=== PATIENT | male | born 1970 | race Caucasian/White ===

== ENCOUNTER → 2017-03-30 | Outpatient (REF) ==
[~2017-03-30] MED LIST: ACET500C PO; FELDENE PO; LYRI150C PO; OXYC10TA12 PO; ROSU10TA PO; VIT D 2000 PO; VITA500C PO; VITAMIN B COMPLE1 PO
--- NOTE | 2017-03-30 10:58 | REP ---
Clinical: Pain and disability. Technique: AP, lateral, coned-down views of the lumbosacral spine. Findings: Moderate to advanced multilevel degenerative changes include osteophyte formation, endplate sclerosis and disc space narrowing as well as suspected sacralization of the L5 vertebral body versus significant degenerative changes including obliteration of the joint space and associated facet arthropathy. Alignment is maintained. There is no evidence for acute fracture / compression injury or subluxation. Impression: Moderate to advanced multilevel degenerative changes primarily involving the L5-S1 level where sacralization of L5 is suspected. Normal alignment without evidence for fracture / compression injury or subluxation. Signed by Denver Hopkins MD 03/30/2017 10:49 A
--- NOTE | 2017-03-30 11:03 | REP ---
Clinical: Pain and disability. Technique: AP, lateral, bilateral oblique and sunrise views of the right knee. Findings: Early advanced tricompartmental osteoarthritic degenerative changes are appreciated. Findings include osteophytosis, subchondral sclerosis, joint space narrowing and possible small amount of chondrocalcinosis. No acute fracture dislocation. No obvious effusion. Impression: Early advanced tricompartmental arthritic degenerative changes. Signed by Denver Hopkins MD 03/30/2017 10:54 A
== END ==
LOC: M SMT 09:50
PROVIDERS: ATTEND Internal Medicine
DX: M17.9 Osteoarthritis of knee, unspecified (principal); M51.37 Other intervertebral disc degeneration, lumbosacral region; M25.561 Pain in right knee; M54.5 Low back pain

== ENCOUNTER → 2019-03-12 | Outpatient (REF) ==
[~2019-03-12] MED LIST changes: +CRES10TA32 PO; -ROSU10TA PO
--- NOTE | 2019-03-13 01:56 | REP ---
Clinical: Pain. Comparison: 03/30/2017. Technique: AP, lateral, coned-down views of the lumbosacral spine. Findings: Moderate to early advanced stable multilevel degenerative changes include endplate sclerosis, early osteophyte formation, minimal scattered disc space narrowing and lower lobe lumbar hypertrophic facet changes. Partial lumbarization of L5 is again suggested. No acute fracture / compression injury or subluxation. Impression: Moderate/early advanced multilevel degenerative changes essentially unchanged compared to prior examination. If the patient remains symptomatic consider MRI for further investigation. Electronically Signed by Denver Hopkins MD 03/13/2019 01:49 A
--- NOTE | 2019-03-13 02:09 | REP ---
Clinical: Pain and disability. Technique: AP, lateral, bilateral oblique, and sunrise views of the left knee. Findings: Mild osteoarthritic degenerative changes include increased sclerosis to the tibial plateau and periarticular surfaces of the patellofemoral joint space along with mild medial and patellofemoral joint space narrowing and very subtle early marginal spurring. No acute fracture dislocation. No effusion. Impression: Mild osteoarthritic degenerative changes. Electronically Signed by Denver Hopkins MD 03/13/2019 02:00 A
== END ==
LOC: M SMT 09:59
PROVIDERS: ATTEND Internal Medicine
DX: Z00.00 Encounter for general adult medical examination without abnormal findings (principal)